=== PATIENT | female | born 1930 | race Caucasian/White ===

== ENCOUNTER → 2016-10-22 | Outpatient (CLI) | payer OTHER ==
[2016-10-22 12:38] LABS: BASOPHILS # (AUTO) 0.02 10*3/UL; BASOPHILS % (AUTO) 0.2 % (0-1); EOSINOPHILS % (AUTO) 0.9 % (0-8); HEMATOCRIT 39.3 % (37.0-47.0); HEMOGLOBIN 11.8 g/dL (12.0-16.0); IMM GRAN % (AUTO) 0.2 % (0-5); IMM GRAN# (AUTO) 0.02 10*3/UL; LYMPHOCYTES # (AUTO) 0.49 10*3/uL; LYMPHOCYTES % (AUTO) 5.7 % (10-50); MEAN CORPUSCULAR HEMOGLOBIN 29.6 PG (27-31); MEAN PLATELET VOLUME 10.5 FL (7.4-12.2); MONOCYTES # (AUTO) 0.43 10*3/UL (0.3-0.8); NEUTROPHILS # (AUTO) 7.51 10*3/UL; RDW COEFFICIENT OF VARIATION 14.3 % (11.5-14.5); RED BLOOD COUNT 3.99 10^6/uL (4.20-5.40); WHITE BLOOD COUNT 8.55 10^3/uL (4.8-10.8)
[2016-10-22 12:40] LABS: PLATELET MORPHOLOGY COMMENT NORMAL MORPHOLOGY (NORM)
[2016-10-22 13:05] LABS: CALCIUM 9.5 mg/dL (8.7-10.7); POTASSIUM 4.3 meq/L (3.8-5.2)
== END ==
LOC: MOB LAB 11:15
DX: J44.9 Chronic obstructive pulmonary disease, unspecified (principal); I10 Essential (primary) hypertension; I48.91 Unspecified atrial fibrillation; F03.90 Unspecified dementia, unspecified severity, without behavioral disturbance, psychotic disturbance, mood disturbance, and anxiety
CPT/HCPCS: 36415; 80048; 85025; 99213; G0463

== ENCOUNTER 2017-01-02 13:00 | Observation (INO) | payer OTHER ==
[2017-01-02] MEDS ORDERED: NITROGLYCERIN 0.4 MG SL TAB (BOTTLE OF 3) SL ONE (13:20)
[2017-01-02] MEDS ORDERED: ONDANSETRON 4 MG/2 ML VIAL IVP ONE (13:20)
--- NOTE | 2017-01-02 13:25 | PDOC ---
Chest Pain HPI - General Chief Complaint: Chest Pain Stated Complaint: chest pain Date Seen by Provider: 01/02/17 Time Seen by Provider: 13:21 Source: Patient Exam Limitations: POSITIVE: No limitations Treatment Prior to Arrival: REPORTS: None Nurse's Notes Reviewed & Considered: Yes EMS Report Reviewed & Considered: Verbal - History of Present Illness Initial Comments: This very pleasant 89-year-old female comes in today with complaints of left- sided chest pain. SHe describes her pain as sharp, nonradiating, that woke her up at 0700 today. Since then her pain has gotten worse her son brought her in for evaluation. She denies any fever chills sweats, headache, sore throat, shortness of breath, nausea vomiting or diarrhea, hematuria or dysuria. Body Location Affected: REPORTS: Chest Timing: REPORTS: Abrupt Duration: 4-6 hours Severity: Moderate Context: REPORTS: Sleep Quality: REPORTS: "Pain" Radiation: REPORTS: None Modifying Factors: improves with: None Reported Similar Symptoms Previously: No Recently seen/treated/hospitalized: No Any Prior Injuries Related to Current Complaint?: No - Patient Home Medications Home Medications: Home Medications Ascorbic Acid [Vitamin C] 500 mg PO DAILY 04/19/14 Donepezil HCl 10 mg PO DAILY 04/19/14 Fluticasone/Salmeterol [Advair 500-50 Diskus] 1 puff INH BID 04/19/14 Calcium Carbonate/Vitamin D3 [Calcium 600-Vit D3 200 Tablet] 1 tab PO DAILY 04/21 Ferrous Sulfate 1 tab PO DAILY 12/12/15 Multivitamin [Daily Multivitamin] 1 tab PO DAILY 12/12/15 Tiotropium Inhalation Cap [Spiriva Inhalation Cap] 18 mcg INH RTDAILY PRN 04/21 Digoxin [Lanoxin] 125 mcg PO DAILY #30 tab 12/13/15 Polyeth Glycol 3350 Packet [Miralax Packet] 17 gm PO DAILY #30 powd.pack Cholecalciferol (Vitamin D3) [Vitamin D3] 1 tab PO QD #30 tab 01/16/16 Aspirin [Aspir 81] 1 tab PO DAILY tab 03/12/16 Furosemide 2 tab PO QD #60 tab 06/07/16 Metoprolol Tartrate 1 tab PO BID #60 tab 06/07/16 Potassium Chloride 0.5 tab PO QD #15 tab 09/07/16 Pantoprazole Sodium [Protonix] 1 tab PO QD #30 tab 09/12/16 predniSONE Tab [Deltasone Tab] 1 tab PO QD #30 tab 12/11/16 - Patient Allergies Allergies/Adverse Reactions: Allergies Allergy/AdvReac Type Severity Reaction Status Date / Time Penicillins Allergy Severe Anaphylaxis Verified 01/02/17 13:24 Past Medical History - heen HEENT History: Denies History Additional HEENT History: READING GLASSES Cardiovascular History: CHF, Arrhythmia Additional Cardiovasular History: Chronic A-Fib Respiratory History: COPD, Pneumonia, Home Oxygen Use Additional Respiratory History: Pt with dx of 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 Never smoked. O2 dependent--2 L continuously. Hx of recurrent pneumonia. Gastrointestinal History: Gallbladder Disease, Small Bowel Obstruction, Other ( please comment) Additional Gastrointestinal History: BOWEL RESECTION X2 Genitourinary History: Denies History Endocrine History: Denies History Musculoskeletal History: Osteoporosis Prosthesis or Implant: Yes (RIGHT TOTAL KNEE) Additional Musculoskeletal History: STRESS FX TO UPPER BAQCK Neurological History: Alzheimer's, Migraines Blood Disorders: Anemia Psychiatric History: Denies History History of Sexually Transmitted Diseases: No Cancer History: Denies History History of MDRO: No History of Other Communicable Diseases: No Alcohol Use: Occasionally Substance Use Type: None Previous Surgical History: Yes Type / Date of Surgery: Open cholecystectomyRight hemicolectomy with primary anastomosis due to massive cecal dilatation, small bowel resection with primary anastomosis, reduction of internal hernia 04/30/2013 Dr. Ko Perez. Anesthesia Reactions: No Malignant Hyperthermia: No Significant Family History: No pertinent family hx ROS - Limitations ROS Limitations: No Limitations Constitution: REPORTS: Denies Symptoms Cardiovascular: REPORTS: Chest Pain Respiratory: REPORTS: Denies Resp Symptoms Neurological: REPORTS: Denies Neuro Symptoms Gastrointestinal: REPORTS: Denies GI Symptoms Endocrine: REPORTS: Denies Symptoms Musculoskeletal: REPORTS: Denies MS Symptoms Genitourinary: REPORTS: Denies Symptoms Eyes: REPORTS: Denies Symptoms ENT: REPORTS: Denies Symptoms Skin: REPORTS: Denies Skin Symptoms Lympathic: REPORTS: Denies Lympathic Symptoms Immunologic: POSITIVE: Denies Symptoms Psychiatric: POSITIVE: Denies Psych Symptoms Chest Pain PE - General Appearance General Appearance: REPORTS: Alert, Cooperative, No Acute Distress, No Evidence of Trauma - HEENT HEENT: POSITIVE: Head Inspection Nml, Eyes Inspection Nml, Ears Inspection Nml, Nose Inspection Nml, PERRL, EOMI - Neck Neck: REPORTS: Normal Inspection - Respiratory Respiratory: REPORTS: No Respiratory Distress, Breath Sounds Normal, Chest Non- Tender - Cardiovascular Cardiovascular: REPORTS: Regular Rate and Rhythm, Heart Sounds Normal - Abdomen Abdomen: Soft: (All Quadrants), Normal Bowel Sounds: (All Quadrants), Denies Tenderness: (All Quadrants) - Skin Skin: REPORTS: Intact, Normal For Race, Warm, Dry, No Rash - Extremities Extremity: Non-Tender: (All Extremities), Normal ROM: (All Extremities), Normal Inspection: (All Extremities) - Neurological / Psychological Neurological: POSITIVE: Affect Apporpriate, Disoriented To Time Chest Pain Progress - Results Reviewed by me Xrays/CTs/US Reviewed by me: Yes Discussed with Radiologist: No Lab Results Reviewed: Yes Lab Results:: Laboratory Results 01/02/17 Range/Units 13:39 WBC 7.93 (4.8-10.8) 10^3/uL RBC 3.86 L (4.20-5.40) 10^6/uL Hgb 11.4 L (12.0-16.0) g/dL Hct 38.0 (37.0-47.0) % MCV 98.4 (81-99) FL MCH 29.5 (27-31) PG MCHC 30.0 L (33-37) g/dL RDW Std Deviation 50.6 H (39-50) fL RDW Coeff of Pepito 14.3 (11.5-14.5) % Plt Count 276 (140-350) 10*3/uL MPV 10.0 (7.4-12.2) FL Immature Gran % (Auto) 0.3 (0-5) % Neut % (Auto) 78.7 (50-80) % Lymph % (Auto) 9.5 L (10-50) % Ellsworth % (Auto) 9.1 (5-15) % Eos % (Auto) 2.1 (0-8) % Baso % (Auto) 0.3 (0-1) % Immature Gran # (Auto) 0.02 10*3/UL Neut # (Auto) 6.25 10*3/UL Lymph # (Auto) 0.75 10*3/uL Ellsworth # (Auto) 0.72 (0.3-0.8) 10*3/UL Eos # (Auto) 0.17 10*3/UL Baso # (Auto) 0.02 10*3/UL WBC Morphology Comment Normal morphology (NORM) Plt Morphology Comment Normal morphology (NORM) RBC Morph Comment Normal morphology (NORM) Sodium 136 (135-145) meq/L Potassium 3.4 L (3.8-5.2) meq/L Chloride 88 L (98-112) meq/L Carbon Dioxide 40 H (23-33) meq/L Anion Gap 8 (5-20) BUN 16 (7-22) mg/dL Creatinine 1.0 (0.50-1.20) mg/dL Estimated GFR (>60 ml/min/1.73m(2)) BUN/Creatinine Ratio 16.00 (6-20) Glucose 91 (78-110) mg/dL Calculated Osmolality 282.0 (267-292) mOsm/kg Calcium 9.3 (8.7-10.7) mg/dL Magnesium 1.6 (1.6-2.4) mg/dL Total Bilirubin 0.4 (0.3-1.2) mg/dL AST 19 (8-39) IU/L ALT 23 (9-52) IU/L Alkaline Phosphatase 63 (38-126) IU/L Troponin I 0.025 (< 0.040) ng/mL Total Protein 5.7 L (6.1-8.0) g/dL Albumin 3.4 L (3.5-4.8) g/dL Globulin 2.3 L (2.50-4.10) g/dL Albumin/Globulin Ratio 1.40 (1.3-2.0) mg/g EKG Interpretation:: POSITIVE: Abnormal EKG, Other (afib) - Patient's Progress Pain Medication Addressed: POSITIVE: No Status: POSITIVE: Improved MDM / ED Course: The patient was evaluated, IV started, blood drawn and sent to the lab for studies, chest x-ray was obtained as well as EKG. Review of her EKG by me shows atrial fibrillation that is rate controlled. Chest x-ray as reviewed by me shows no acute cardiopulmonary decompensation. Patient's chest pain was improved with sublingual nitroglycerin. Laboratory findings: CBC is unremarkable. Comprehensive metabolic panel is unremarkable, troponin, magnesium, are normal. Assessment: Chest pain relieved with nitroglycerin, atrial fibrillation. Plan: Admission for rule out myocardial infarction. Quality Measure Initiative: CP/AMI: POSITIVE: EKG, ASA Quality Measure Initiative: CAP: POSITIVE: CXR or CT - Consult Counseled: POSITIVE: Patient, Family, RE: Lab Results, RE: Radiology Results, RE : DX, RE: Need for F/U Patient Care Time - Estimated PCT Patient Care Time (In Minutes): 30 Vital Signs - Recent Vital Signs Vital Signs: Vital Signs (Last 8 hours) Temp Pulse Pulse Resp BP Pulse Ox 01/02/17 13:02 97.8 F 95 95 20 150/105 97 - VS Reviewed Vital Signs Reviewed: Yes Discharge Clinical Impression: Chest discomfort, Chest pain Discharge Disposition: Admit to Inpatient Condition: Stable Patient Instructions Given at Discharge: Chest Pain (ED) Follow Up With: KARL NICOLE [Primary Care Provider] - Date Decision to Admit to Inpatient: 01/02/17 Time Decision to Admit to Inpatient: 14:07
[2017-01-02] MEDS ORDERED: NORMAL SALINE 10 ML SYRINGE FLUSH IVP PRN ×2 (13:35→14:53)
[2017-01-02 13:43] LABS: BASOPHILS # (AUTO) 0.02 10*3/UL; BASOPHILS % (AUTO) 0.3 % (0-1); EOSINOPHILS # (AUTO) 0.17 10*3/UL; EOSINOPHILS % (AUTO) 2.1 % (0-8); HEMOGLOBIN 11.4 g/dL (12.0-16.0); LYMPHOCYTES # (AUTO) 0.75 10*3/uL; MEAN CORPUSCULAR HEMOGLOBIN 29.5 PG (27-31); MEAN CORPUSCULAR VOLUME 98.4 FL (81-99); MONOCYTES # (AUTO) 0.72 10*3/UL (0.3-0.8); MONOCYTES % (AUTO) 9.1 % (5-15); NEUTROPHILS # (AUTO) 6.25 10*3/UL; NEUTROPHILS % (AUTO) 78.7 % (50-80); RED BLOOD COUNT 3.86 10^6/uL (4.20-5.40)
[2017-01-02 13:47] LABS: PLATELET MORPHOLOGY COMMENT NORMAL MORPHOLOGY (NORM); RBC MORPHOLOGY COMMENT NORMAL MORPHOLOGY (NORM); WBC MORPHOLOGY COMMENT NORMAL MORPHOLOGY (NORM)
[2017-01-02] MEDS ORDERED: Sodium Chloride 0.9% 1,000 ML PRIMARY IV ONE (13:53)
[2017-01-02 13:59] LABS: CALCIUM 9.3 mg/dL (8.7-10.7); MAGNESIUM 1.6 mg/dL (1.6-2.4); SERUM ALBUMIN 3.4 g/dL (3.5-4.8)
[2017-01-02] MEDS ORDERED: TIOTROPIUM BROMIDE 18 MCG CAPSULE INH PRN (14:53)
[2017-01-02] MEDS ORDERED: ONDANSETRON 4 MG/2 ML VIAL IVP PRN (14:53)
[2017-01-02] MEDS ORDERED: CALCIUM CARBONATE 500 MG (TUMS) CHEWABLE TABLET PO PRN (14:53)
[2017-01-02] MEDS ORDERED: NITROGLYCERIN 0.4 MG SL TAB (BOTTLE OF 3) SL PRN (14:53)
[2017-01-02] MEDS ORDERED: ASPIRIN 81 MG (BABY) CHEWABLE TABLET PO ONE (14:53)
[2017-01-02] MEDS ORDERED: LIDOCAINE W/ SODIUM BICARB 0.5 ML SYR SUBD PRN (14:53)
[2017-01-02] MEDS ORDERED: FUROSEMIDE 40 MG TABLET PO SCH ×2 (15:15→19:01)
--- NOTE | 2017-01-02 15:28 | PDOC ---
History and Physical - History of Present Illness Date and Time of Service: 01/02/2017, 1525 Chief Complaint: Chest pain History of Present Illness: This very pleasant but demented 86-year-old female who has dementia, reportedly a history of coronary artery disease, COPD, history of a hip fracture in 2016, amongst other medical issues, who presents with chest pain today of acute onset. Not associated with activities. At first she refused hospitalization, but then continued to complain of pain. She did respond to nitroglycerin, and to me she states that it hurts worse with a deep breath. No nausea or vomiting reported. Did not have a cough or fever according to her sons. The history has to be obtained from the patient's sons as the patient has dementia and her history is not entirely reliable. There appeared to be no exacerbating factors. In the emergency room, chest x-ray appeared negative. Troponin was negative. An EKG showed atrial fibrillation. She has a rate controlled atrial fibrillation. No other exacerbating factors were able to be identified. Past Medical History Medical History: 1. Alzheimer's dementia. 2. COPD on 3 L oxygen at home. 3. Coronary artery disease with history of a myocardial infarction by history. 4. Hypertension. 5. GERD. 6. Atrial fibrillation. 7. History of hip fracture status post ORIF in November 2015. Surgical History: 1. Hip fracture repair (both hips have had fracture and repair). 2. Small bowel obstruction. 3. Cholecystectomy. 4. Appendectomy. 5. Hysterectomy Pertinent Family History: Patient's father, according to her son, of heart problems. Patient's mother of "old age" Past Social History: Patient does not smoke, occasionally drinks alcohol per her brother. She had 6 children. Her son and a daughter are her parkinson of associate attorney. One of her daughters has dementia. Tobacco Use: Never Smoker Substance Use Type: None Alcohol Use: Occasionally Medication / Allergies Home Medications: Home Medications Medication Instructions Recorded Confirmed Type Ascorbic Acid [Vitamin C] 500 mg PO DAILY 04/19/14 01/02/17 History Donepezil HCl 10 mg PO DAILY 04/19/14 01/02/17 History Fluticasone/Salmeterol [Advair 1 puff INH DAILY 04/19/14 01/02/17 History 500-50 Diskus] Calcium Carbonate/Vitamin D3 1 tab PO DAILY 12/12/15 01/02/17 History [Calcium 600-Vit D3 200 Tablet] Ferrous Sulfate 1 tab PO DAILY 12/12/15 01/02/17 History Multivitamin [Daily Multivitamin] 1 tab PO DAILY 12/12/15 01/02/17 History Tiotropium Inhalation Cap 18 mcg INH RTDAILY 12/12/15 01/02/17 History [Spiriva Inhalation Cap] Digoxin [Lanoxin] 125 mcg PO DAILY #30 tab 12/13/15 01/02/17 Rx Cholecalciferol (Vitamin D3) 1 tab PO QD #30 tab 01/16/16 01/02/17 Clinic [Vitamin D3] Aspirin [Aspir 81] 1 tab PO DAILY tab 03/12/16 01/02/17 History Furosemide 2 tab PO QD #60 tab 06/07/16 01/02/17 Clinic Metoprolol Tartrate 1 tab PO BID #60 tab 06/07/16 01/02/17 Clinic Potassium Chloride 0.5 tab PO QD #15 tab 09/07/16 01/02/17 Clinic Pantoprazole Sodium [Protonix] 1 tab PO QD #30 tab 09/12/16 01/02/17 Clinic predniSONE Tab [Deltasone Tab] 1 tab PO QD #30 tab 12/11/16 01/02/17 Clinic Docusate Sodium 100 mg PO DAILY 01/02/17 01/02/17 History Allergies/Adverse Reactions: Allergies Allergy/AdvReac Type Severity Reaction Status Date / Time Penicillins Allergy Severe Anaphylaxis Verified 01/02/17 13:24 Review of Systems - Review of Systems ROS Unobtainable: Due to Mental Status (Due to the dementia of the patient, and accurate review systems was very difficult to obtain. Noted things are below.) - Respiratory Respiratory: REPORTS: Pleuritic Pain - Cardiovascular Cardiovascular: REPORTS: Chest Pain - Gastrointestinal Gastrointestinal / Abdominal: REPORTS: Negative System Review - Genitourinary Genitourinary: REPORTS: Negative System Review Exam - Vitals Vital Signs: Vital Signs Temperature 97.8 F Temperature Source Temporal Artery Scan Pulse Rate [Pulse Oximeter 95 Right] Pulse Rate 99 Respiratory Rate 28 Blood Pressure [Right Arm] 137/70 Blood Pressure 104/78 Pulse Ox 95 Oxygen Flow Rate 3 Oxygen Delivery Method Nasal Cannula Height 5 ft 7 in Weight 146 lb 3.2 oz - General General Appearance: POSITIVE: No Acute Distress, Cooperative - Head Head Exam: POSITIVE: Normal Inspection, Normocephalic, Atraumatic - Eye Eye Exam: POSITIVE: No Scleral Icterus - ENT ENT Exam: POSITIVE: Mucous Membranes Moist - Neck Neck Exam: POSITIVE: Normal Inspection, No Tenderness, No Thyromegaly - Respiratory Respiratory Exam: POSITIVE: Breathing Non Labored, Decreased Breath Sounds - Cardiovascular Cardiovascular Exam: POSITIVE: No Murmur, No Clicks, No Gallops, No Rubs, Irregular Rhythm, No JVD Additional Cardiovascular Details: Chest pain not reproducible with palpation. - GI/Abdominal GI/Abdominal Exam: POSITIVE: Normal Bowel Sounds, Non Tender, Non Distended, Soft - Rectal Rectal Exam: POSITIVE: Deferred - External Exam: POSITIVE: Deferred Exam: POSITIVE: Deferred - Extremities Extremities Exam: POSITIVE: No Clubbing Present, No Edema Present, No Cyanosis Present - Neurological Neurological Exam: POSITIVE: Alert, No Facial Droop, Speech Intact / Clear, Moves All Extremities Equally - Psychiatric Psychiatric Exam: POSITIVE: Normal Affect, Normal Mood - Integumentary Integumentary Exam: POSITIVE: Normal Color, Warm, Dry, Intact Additional Integumentary Exam Details: Scattered bruises on lower extremities. Results - Labs CBC and BMP: 01/02/17 13:39 01/02/17 13:39 Labs - Last 24 Hours: Laboratory Results 01/02/17 Range/Units 13:39 WBC 7.93 (4.8-10.8) 10^3/uL RBC 3.86 L (4.20-5.40) 10^6/uL Hgb 11.4 L (12.0-16.0) g/dL Hct 38.0 (37.0-47.0) % MCV 98.4 (81-99) FL MCH 29.5 (27-31) PG MCHC 30.0 L (33-37) g/dL RDW Std Deviation 50.6 H (39-50) fL RDW Coeff of Pepito 14.3 (11.5-14.5) % Plt Count 276 (140-350) 10*3/uL MPV 10.0 (7.4-12.2) FL Immature Gran % (Auto) 0.3 (0-5) % Neut % (Auto) 78.7 (50-80) % Lymph % (Auto) 9.5 L (10-50) % Nicholas % (Auto) 9.1 (5-15) % Eos % (Auto) 2.1 (0-8) % Baso % (Auto) 0.3 (0-1) % Immature Gran # (Auto) 0.02 10*3/UL Neut # (Auto) 6.25 10*3/UL Lymph # (Auto) 0.75 10*3/uL Nicholas # (Auto) 0.72 (0.3-0.8) 10*3/UL Eos # (Auto) 0.17 10*3/UL Baso # (Auto) 0.02 10*3/UL WBC Morphology Comment Normal morphology (NORM) Plt Morphology Comment Normal morphology (NORM) RBC Morph Comment Normal morphology (NORM) Sodium 136 (135-145) meq/L Potassium 3.4 L (3.8-5.2) meq/L Chloride 88 L (98-112) meq/L Carbon Dioxide 40 H (23-33) meq/L Anion Gap 8 (5-20) BUN 16 (7-22) mg/dL Creatinine 1.0 (0.50-1.20) mg/dL Estimated GFR (>60 ml/min/1.73m(2)) BUN/Creatinine Ratio 16.00 (6-20) Glucose 91 (78-110) mg/dL Calculated Osmolality 282.0 (267-292) mOsm/kg Calcium 9.3 (8.7-10.7) mg/dL Magnesium 1.6 (1.6-2.4) mg/dL Total Bilirubin 0.4 (0.3-1.2) mg/dL AST 19 (8-39) IU/L ALT 23 (9-52) IU/L Alkaline Phosphatase 63 (38-126) IU/L Troponin I 0.025 (< 0.040) ng/mL Total Protein 5.7 L (6.1-8.0) g/dL Albumin 3.4 L (3.5-4.8) g/dL Globulin 2.3 L (2.50-4.10) g/dL Albumin/Globulin Ratio 1.40 (1.3-2.0) mg/g AFib Stroke Risk Screening - AFib Stroke Risk (CHADS-VASc) Atrial Fibrillation Ischemic Stroke Risk Factors: Female, Age 75 years or older CHADS-VASc Score (A-Fib Stroke Risk Score): 3 CHADS-VASc Risk: High Risk Assessment and Plan - Patient Problems (1) Chest pain Current Visit: Yes Status: Acute (2) Afib Current Visit: No Status: Acute Qualifiers: Atrial fibrillation type: chronic Qualifier Code(s): (I48.2) Chronic atrial fibrillation (3) Anemia Current Visit: Yes Status: Chronic Qualifiers: Anemia type: iron deficiency Iron deficiency anemia type: unspecified iron deficiency Qualified Description: Iron deficiency anemia, unspecified iron deficiency anemia type Qualifier Code(s): (D50.9) Iron deficiency anemia, unspecified (4) Chronic obstructive lung disease Current Visit: Yes Status: Chronic (5) Alzheimer's dementia Current Visit: No Status: Acute Qualifiers: Alzheimer's disease onset: unspecified onset Dementia behavioral disturbance: without behavioral disturbance Qualifier Code(s): (G30.9) Alzheimer's disease, unspecified, (F02.80) Dementia in other diseases classified elsewhere without behavioral disturbance - Assessment / Plan Additional Assessment/Plan Details: Admit patient for observation. Check troponins and start stress test, chemical stress test. I do not think this patient would be a great candidate for stents and/or bypass, but risk stratification may make us consider making changes to her medical management. There may be some value in knowing that with the stress test. Replace electrolytes with low potassium. DO NOT RESUSCITATE status. Discussed the above plan with the patient's sons and they were in agreement. Given the pleuritic nature of chest pain, I will go ahead and get a CTA to look at possibility of pulmonary embolism.
--- NOTE | 2017-01-02 17:02 | DI ---
CT CTA CHEST NONCORONARY W/WO,01/02/2017 3:07 PM: Clinical History: Chest pain and recent hip fracture. Previous Exam: September 10, 2014 Findings: Multiple helically acquired CT images are obtained through the chest following a CT chest angiogram p rotocol, and demonstrate mild stable cardiomegaly. The pulmonary arteries demonstrate no evidence of filling defect or truncation to suggest pulmonary embolism. The aorta is unremarkable. There is no infiltrate nor effusion. Skeletal structures are unremarkable. The thyroid is also unremarkable. Impression: No evidence of pulmonary embolism.
--- NOTE | 2017-01-02 17:02 | DI ---
XR CXR 1VW,01/02/2017 1:20 PM: Clinical History: Chest pain Previous Exam: November 27, 2015 Findings: 2 AP portable views of the chest are obtained, and demonstrate clear lungs. There is stable cardiomeg que. A few peripheral vascular calcifications are seen. Impression: Mild cardiomegaly otherwise unremarkable.
[2017-01-02] MEDS: PANTOPRAZOLE 40 MG TABLET PO SCH (17:42)
[2017-01-02] MEDS ORDERED: POTASSIUM CHLORIDE 20 MEQ TAB PO ONE (19:00)
[2017-01-02] MEDS ORDERED: ACETAMINOPHEN 325 MG TABLET PO PRN (19:10)
[2017-01-02] MEDS: FLUTICASONE/SALMETEROL 500/50 UD INHALER INH SCH (20:38)
[2017-01-02] MEDS: Metoprolol TARTRATE Tab 25 MG TAB PO SCH (20:47)
[2017-01-02] MEDS ORDERED: DONEPEZIL 5 MG TABLET PO SCH (21:00)
[2017-01-03 05:20] LABS: CHOL/HDL RATIO 2.17 RATIO (0-4.0); LDL CHOLESTEROL,CALCULATED 67.2 mg/dL
[2017-01-03] MEDS: FLUTICASONE/SALMETEROL 500/50 UD INHALER INH SCH (07:15)
[2017-01-03] MEDS ORDERED: Multivitamin Tab 1 TAB PO SCH (09:00)
[2017-01-03] MEDS ORDERED: predniSONE Tab 10 MG TAB PO SCH (09:00)
[2017-01-03] MEDS ORDERED: ASPIRIN EC 81 MG TABLET PO SCH (09:00)
[2017-01-03] MEDS ORDERED: Potassium Chloride Tab 10 MEQ TAB PO SCH (09:00)
[2017-01-03] MEDS ORDERED: POLYETHYLENE GLYCOL 3350 17 GM POWDER PO SCH (09:00)
[2017-01-03] MEDS ORDERED: ASCORBIC ACID 500 MG TABLET PO SCH (09:00)
[2017-01-03] MEDS ORDERED: DOCUSATE 100 MG CAPSULE PO SCH (09:00)
[2017-01-03] MEDS ORDERED: ENOXAPARIN SODIUM 40 MG/0.4 ML SYRINGE SUBCUT SCH (09:00)
[2017-01-03] MEDS ORDERED: DIGOXIN 125 MCG TABLET PO SCH (09:00)
[2017-01-03] MEDS ORDERED: CHOLECALCIFEROL 1000 IU TABLET PO SCH (09:00)
[2017-01-03] MEDS ORDERED: METOPROLOL TARTRATE 5 MG/5 ML VIAL IVP ONE (09:23)
[2017-01-03] MEDS: Metoprolol TARTRATE Tab 25 MG TAB PO SCH (09:34)
[2017-01-03] MEDS: PANTOPRAZOLE 40 MG TABLET PO SCH (09:35)
--- NOTE | 2017-01-03 10:24 | STRESSTEST ---
[facility] Interpretive Statements This is an 86 YO female with chest pain, sub sternal and left sided, atypical, complicated by dementia. Risk factors include hypertention and age. CT scan negative for PE. Reshma scan stress test ordered for risk stratification and medication management options. Resting images done yesterday. Today, resting EKG shows A-fib with normal ventricular response. During test, some borderline ST depression in inferior leads, HR increased to max of 141. No chest pain or SOB. had some abdominal discomfort. Plan: stress images later today and then review stress test with radiology. [email or web address]
--- NOTE | 2017-01-03 11:51 | EKG ---
[address] [place] [address] Measurements Intervals Weld Rate: 101 P: CA: 0 QRS: -60 QRSD: 89 T: 93 QT: 345 QTc: 403 Interpretive Statements ATRIAL FIBRILLATION WITH RAPID VENTRICULAR RESPONSE LEFT AXIS DEVIATION PPOSSIBLE ANTEROSEPTAL MYOCARDIAL INFARCTION OF INDETERMINATE AGE. FINDINGS MAY BE DUE TO LEAD POSITIONING Compared to ECG 11/29/2015 18:23:37 Myocardial infarct finding now present T-wave abnormality no longer present Electronically Signed On 01-03-17 15:11:42 MDT by Jose Carson [email or web address]
[2017-01-03 13:42] VITALS: RESP 20; TEMP 98.2
--- NOTE | 2017-01-03 14:13 | DI ---
2 DAY LEXISCAN STRESS & REST MYOCARDIAL PERFUSION SCANS, 01/02/2017 2:53 PM : Clinical History: Chest pain Previous Exam: None at this facility. The patient was stressed by Dr. Tony Sandoval The standard Lexiscan protocol was used. Please see the Doctor's report. At the designated time, 34.9 mCi of 99Tc-sestimibi was injected IV. Stress gated tomograms were acquired within one hour of the i njection. For the resting scans, 35.8 mCi was injected IV and resting gated tomograms were acquired in similar fashion. Stress scans were performed on January 03, 2017; the resting scans were performed on January 02, 2017. Quantitative and qualitative analyses were performed. Quantitative analysis was performed with the [place] [facility] [id number] protocols. Very low dose limited CT scans of the chest are o btained through the level of the heart for attenuation correction of the gated stress and rest cardia c SPECT data. Non-attenuated and attenuated scans were processed for review, and the attenuated scans were used for final interpretation of this study. Review of the raw data images and quality director files indicate that these series of examinations ar e of good quality. There are 23% rejected beats. Stress and rest left ventricular chamber sizes are normal. Stress and rest LVEF are 63 % and 62 %, r espectively. There is a small moderate intensity defect involving the anterior apex with moderate reversibility. There is also a large focus of mild reversibility involving the inferior lateral wall predominately t hrough the mid slices. Transient ischemic dilatation ratio is 1.3, with a normal range up to 1.22 for patients stre ssed with the Wes protocol and up to 1.33 for patients stressed with the Lexiscan protocol. The very low dose CT scans through the level of the heart demonstrate multiple peripheral vascular ca lcifications and multiple coronary artery calcifications. There is mild cardiomegaly. Diffuse degenerative changes of the thoracic spine are noted. There is no adenopathy or evidence of lung nodules. Readin. Small focus of moderate intensity reversibility involving the anterior apex. 2. Large area of mild intensity reversible involving the inferior lateral wall. 3. Mild hypokinesis with ejection fractions at the low end of normal.
[2017-01-03] MEDS ORDERED: ISOSORBIDE MONONITRATE 30 MG SR 24H TABLET PO ONE (14:51)
--- NOTE | 2017-01-03 16:20 | DCSUMMARY ---
Hospitalization Summary Admit Date: 01/02/17 Discharge Date: 01/03/17 Primary Diagnosis:: coronary artery disease, probably severe Secondary Diagnosis:: Chest pains that I think are stable angina Hospital Course: This is a very pleasant but demented 86-year-old female with multiple medical issues who came in with complaints of left-sided chest pain with pleuritic component. She was admitted for observation, and a pulmonary emboli CT protocol study was done and it was negative for pulmonary embolism. She had troponins that were negative although the last one was minimally elevated. Her chest pains resolved. A stress test was done and she had evidence of several reversibility is consistent with coronary artery disease in multiple vessels. I discussed the situation thoroughly with the patient's son, and several of her other sons. I do not think the patient is a good candidate for stents or bypass surgery based on her COPD, dementia, and significant chance of worsening quality of life with these procedures. Her son, her primary caregiver, is in agreement, 100%, and he says that the patient does not want any procedures of any kind. When I talked to the patient personally, she stated that if she had any procedures, including stents, she would "thump me". For now, further chest pains and I think could be stable angina, I think it may be worthwhile to trial Imdur daily, and see how she does with this. The patient's agreeable and the family is agreeable to this. Today, patient states that her chest pains are resolved. There is minimal pleuritic component. No nausea or vomiting or abdominal pain. Assessment and Plan: 1. As per discharge assessments noted 2. Disposition: 3. Condition on discharge, stable and improved. 4. Diet: regular diet 5. Activities: resume normal activities 6. Follow-Up: 1. Dr. Caputo on 01/16/2017 2. 7. Medications at the Time of Discharge: Home Medications Medication Instructions Recorded Confirmed Type Ascorbic Acid [Vitamin C] 500 mg PO DAILY 04/19/14 01/02/17 History Donepezil HCl 10 mg PO DAILY 04/19/14 01/02/17 History Fluticasone/Salmeterol [Advair 1 puff INH DAILY 04/19/14 01/02/17 History 500-50 Diskus] Calcium Carbonate/Vitamin D3 1 tab PO DAILY 12/12/15 01/02/17 History [Calcium 600-Vit D3 200 Tablet] Ferrous Sulfate 1 tab PO DAILY 12/12/15 01/02/17 History Multivitamin [Daily Multivitamin] 1 tab PO DAILY 12/12/15 01/02/17 History Tiotropium Inhalation Cap 18 mcg INH RTDAILY 12/12/15 01/02/17 History [Spiriva Inhalation Cap] Digoxin [Lanoxin] 125 mcg PO DAILY #30 tab 12/13/15 01/02/17 Rx Cholecalciferol (Vitamin D3) 1 tab PO QD #30 tab 01/16/16 01/02/17 Clinic [Vitamin D3] Aspirin [Aspir 81] 1 tab PO DAILY tab 03/12/16 01/02/17 History Furosemide 2 tab PO QD #60 tab 06/07/16 01/02/17 Clinic Metoprolol Tartrate 1 tab PO BID #60 tab 06/07/16 01/02/17 Clinic Potassium Chloride 0.5 tab PO QD #15 tab 09/07/16 01/02/17 Clinic Pantoprazole Sodium [Protonix] 1 tab PO QD #30 tab 09/12/16 01/02/17 Clinic predniSONE Tab [Deltasone Tab] 1 tab PO QD #30 tab 12/11/16 01/02/17 Clinic Docusate Sodium 100 mg PO DAILY 01/02/17 01/02/17 History Isosorbide Mononitrate ER [Imdur] 30 mg PO DAILY #30 tab.sr.24h 01/03/17 Rx 8. Time, care, counseling and coordination of care for this discharge is less than 30 minutes. Exam - Vitals Vital Signs: Vital Signs Temperature 98.2 F Temperature Source Temporal Artery Scan Pulse Rate [Apical] 100 Pulse Rate [Pulse Oximeter 81 Right] Pulse Rate 92 Respiratory Rate 20 Blood Pressure [Right Arm] 104/50 Blood Pressure 104/78 Pulse Ox 95 Oxygen Flow Rate 3 Oxygen Delivery Method Nasal Cannula Height 5 ft 7 in Weight 151 lb 3.2 oz - General General Appearance: POSITIVE: No Acute Distress, Cooperative - Head Head Exam: POSITIVE: Atraumatic - Eye Eye Exam: POSITIVE: No Scleral Icterus - Respiratory Respiratory Exam: POSITIVE: Clear to Auscultation - Bilaterally, Breathing Non Labored - Cardiovascular Cardiovascular Exam: POSITIVE: RRR, No Murmur, No Clicks, No Gallops, No Rubs, No JVD - GI/Abdominal GI/Abdominal Exam: POSITIVE: Normal Bowel Sounds, Non Tender, Non Distended, Soft - Extremities Extremities Exam: POSITIVE: No Clubbing Present, No Edema Present, No Cyanosis Present Data Perinent Studies: Laboratory Results 01/02/17 01/02/17 01/02/17 Range/Units 13:39 17:07 17:10 WBC 7.93 (4.8-10.8) 10^3/uL RBC 3.86 L (4.20-5.40) 10^6/uL Hgb 11.4 L (12.0-16.0) g/dL Hct 38.0 (37.0-47.0) % MCV 98.4 (81-99) FL MCH 29.5 (27-31) PG MCHC 30.0 L (33-37) g/dL RDW Std Deviation 50.6 H (39-50) fL RDW Coeff of Pepito 14.3 (11.5-14.5) % Plt Count 276 (140-350) 10*3/uL MPV 10.0 (7.4-12.2) FL Immature Gran % (Auto) 0.3 (0-5) % Neut % (Auto) 78.7 (50-80) % Lymph % (Auto) 9.5 L (10-50) % Burnet % (Auto) 9.1 (5-15) % Eos % (Auto) 2.1 (0-8) % Baso % (Auto) 0.3 (0-1) % Immature Gran # (Auto) 0.02 10*3/UL Neut # (Auto) 6.25 10*3/UL Lymph # (Auto) 0.75 10*3/uL Burnet # (Auto) 0.72 (0.3-0.8) 10*3/UL Eos # (Auto) 0.17 10*3/UL Baso # (Auto) 0.02 10*3/UL WBC Morphology Comment Normal morphology (NORM) Plt Morphology Comment Normal morphology (NORM) RBC Morph Comment Normal morphology (NORM) Sodium 136 (135-145) meq/L Potassium 3.4 L (3.8-5.2) meq/L Chloride 88 L (98-112) meq/L Carbon Dioxide 40 H (23-33) meq/L Anion Gap 8 (5-20) BUN 16 (7-22) mg/dL Creatinine 1.0 (0.50-1.20) mg/dL Estimated GFR (>60 ml/min/1.73m(2)) BUN/Creatinine Ratio 16.00 (6-20) Glucose 91 (78-110) mg/dL Calculated Osmolality 282.0 (267-292) mOsm/kg Calcium 9.3 (8.7-10.7) mg/dL Magnesium 1.6 (1.6-2.4) mg/dL Total Bilirubin 0.4 (0.3-1.2) mg/dL AST 19 (8-39) IU/L ALT 23 (9-52) IU/L Alkaline Phosphatase 63 (38-126) IU/L Troponin I 0.025 0.031 (< 0.040) ng/mL NT-Pro-B Natriuret Pep 2390 H (0-450) PG/ML Total Protein 5.7 L (6.1-8.0) g/dL Albumin 3.4 L (3.5-4.8) g/dL Globulin 2.3 L (2.50-4.10) g/dL Albumin/Globulin Ratio 1.40 (1.3-2.0) mg/g Triglycerides (44-200) mg/dL Cholesterol (120-200) mg/dL LDL Cholesterol, Calc mg/dL VLDL Cholesterol (0-40) mg/dL HDL Cholesterol (40-150) mg/dL Cholesterol/HDL Ratio (0-4.0) RATIO 03/30/17 Range/Units 04:34 WBC (4.8-10.8) 10^3/uL RBC (4.20-5.40) 10^6/uL Hgb (12.0-16.0) g/dL Hct (37.0-47.0) % MCV (81-99) FL MCH (27-31) PG MCHC (33-37) g/dL RDW Std Deviation (39-50) fL RDW Coeff of Pepito (11.5-14.5) % Plt Count (140-350) 10*3/uL MPV (7.4-12.2) FL Immature Gran % (Auto) (0-5) % Neut % (Auto) (50-80) % Lymph % (Auto) (10-50) % [place]et % (Auto) (5-15) % Eos % (Auto) (0-8) % Baso % (Auto) (0-1) % Immature Gran # (Auto) 10*3/UL Neut # (Auto) 10*3/UL Lymph # (Auto) 10*3/uL [place]et # (Auto) (0.3-0.8) 10*3/UL Eos # (Auto) 10*3/UL Baso # (Auto) 10*3/UL WBC Morphology Comment (NORM) Plt Morphology Comment (NORM) RBC Morph Comment (NORM) Sodium 136 (135-145) meq/L Potassium 3.9 (3.8-5.2) meq/L Chloride 91 L (98-112) meq/L Carbon Dioxide 38 H (23-33) meq/L Anion Gap 7 (5-20) BUN 17 (7-22) mg/dL Creatinine 1.0 (0.50-1.20) mg/dL Estimated GFR (>60 ml/min/1.73m(2)) BUN/Creatinine Ratio 17.00 (6-20) Glucose 102 (78-110) mg/dL Calculated Osmolality 283.0 (267-292) mOsm/kg Calcium 9.0 (8.7-10.7) mg/dL Magnesium (1.6-2.4) mg/dL Total Bilirubin (0.3-1.2) mg/dL AST (8-39) IU/L ALT (9-52) IU/L Alkaline Phosphatase (38-126) IU/L Troponin I 0.041 H (< 0.040) ng/mL NT-Pro-B Natriuret Pep (0-450) PG/ML Total Protein (6.1-8.0) g/dL Albumin (3.5-4.8) g/dL Globulin (2.50-4.10) g/dL Albumin/Globulin Ratio (1.3-2.0) mg/g Triglycerides 69 (44-200) mg/dL Cholesterol 150 (120-200) mg/dL LDL Cholesterol, Calc 67.200 mg/dL VLDL Cholesterol 13 (0-40) mg/dL HDL Cholesterol 69 (40-150) mg/dL Cholesterol/HDL Ratio 2.17 (0-4.0) RATIO Positive stress test. Patient Problems - Patient Problem List (1) Coronary artery disease involving [place]iat[place] coronary artery Current Visit: Yes Status: Acute Qualifiers: [place] vs. transplanted heart: [place] heart Associated angina: with stable angina Qualified Description: Coronary artery disease of [place] artery of [place] heart with stable angina pectoris Qualifier Code(s): ( I25.118) Atherosclerotic heart disease of [place] coronary artery with other forms of angina pectoris (2) Chest pain Current Visit: Yes Status: Acute (3) Afib Current Visit: No Status: Acute Qualifiers: Atrial fibrillation type: chronic Qualifier Code(s): (I48.2) Chronic atrial fibrillation (4) Anemia Current Visit: Yes Status: Chronic Qualifiers: Anemia type: iron deficiency Iron deficiency anemia type: unspecified iron deficiency Qualified Description: Iron deficiency anemia, unspecified iron deficiency anemia type Qualifier Code(s): (D50.9) Iron deficiency anemia, unspecified (5) Chronic obstructive lung disease Current Visit: Yes Status: Chronic (6) Alzheimer's dementia Current Visit: No Status: Acute Qualifiers: Alzheimer's disease onset: unspecified onset Dementia behavioral disturbance: without behavioral disturbance Qualifier Code(s): (G30.9) Alzheimer's disease, unspecified, (F02.80) Dementia in other diseases classified elsewhere without behavioral disturbance
[2017-01-04] MEDS ORDERED: ISOSORBIDE MONONITRATE 30 MG SR 24H TABLET PO SCH (09:00)
== END 2017-01-03 17:01 | disposition home or self-care (01) ==
LOC: ER 13:00 → MED/SURG 14:00 → UNDOADMOB 14:24 → MED/SURG 14:24
PROVIDERS: ADMIT Family Medicine; ATTEND Family Medicine
DX: I25.10 Atherosclerotic heart disease of native coronary artery without angina pectoris (principal); D64.9 Anemia, unspecified; J44.9 Chronic obstructive pulmonary disease, unspecified; G30.8 Other Alzheimer's disease; F02.80 Dementia in other diseases classified elsewhere, unspecified severity, without behavioral disturbance, psychotic disturbance, mood disturbance, and anxiety
CPT/HCPCS: 36415 ×2; 71010; 71275; 78452; 80048; 80053; 80061; 83735; 83880; 84484 ×2; 85025; 93005; 93010; 93016; 93017; 93018; 94640 ×2; 94761 ×2; 99284 ×2; J1650; J7512; J7030

== ENCOUNTER → 2017-01-16 | Outpatient (CLI) | payer OTHER | LOC: MMPC 11:11 | DX: I25.10 Atherosclerotic heart disease of native coronary artery without angina pectoris (principal); I48.91 Unspecified atrial fibrillation; D64.9 Anemia, unspecified; I10 Essential (primary) hypertension; F03.90 Unspecified dementia, unspecified severity, without behavioral disturbance, psychotic disturbance, mood disturbance, and anxiety; J44.9 Chronic obstructive pulmonary disease, unspecified | CPT/HCPCS: 99213; G0463 ==

== ENCOUNTER → 2017-03-18 | Outpatient (CLI) | payer OTHER | LOC: MMPC 11:11 | DX: J44.9 Chronic obstructive pulmonary disease, unspecified (principal); I25.10 Atherosclerotic heart disease of native coronary artery without angina pectoris; I48.91 Unspecified atrial fibrillation; F03.90 Unspecified dementia, unspecified severity, without behavioral disturbance, psychotic disturbance, mood disturbance, and anxiety; I10 Essential (primary) hypertension; D64.9 Anemia, unspecified; R51 Headache | CPT/HCPCS: 99213; G0463 ==

== ENCOUNTER 2019-07-19 09:30 | Inpatient (IN) ==
[2019-07-19] MEDS ORDERED: methylPREDNISolone 125 MG/2 ML VIAL IVP ONE (09:40)
[2019-07-19] MEDS ORDERED: cefTRIAXone Inj 1 GM in Sodium Chloride 0.9% 100 ML IV ONE (09:43)
[2019-07-19 09:52] LABS: BASOPHILS # (AUTO) 0.02 10*3/UL; BASOPHILS % (AUTO) 0.1 % (0-1); EOSINOPHILS # (AUTO) 0 10*3/UL; EOSINOPHILS % (AUTO) 0 % (0-8); Hemoglobin [HGB] 12.5 g/dL (12.0-16.0); LYMPHOCYTES # (AUTO) 0.28 10*3/uL; MEAN CORPUSCULAR HGB CONC 29.1 g/dL (33-37); MEAN CORPUSCULAR VOLUME 103.9 FL (81-99); MEAN PLATELET VOLUME 10.5 FL (7.4-12.2); MONOCYTES # (AUTO) 0.91 10*3/UL (0.3-0.8); MONOCYTES % (AUTO) 5.9 % (5-15); NEUTROPHILS # (AUTO) 14.14 10*3/UL; NEUTROPHILS % (AUTO) 91.5 % (50-80); PLATELET MORPHOLOGY COMMENT NORMAL MORPHOLOGY (NORM); RBC MORPHOLOGY COMMENT NORMAL MORPHOLOGY (NORM); RED BLOOD COUNT 4.14 10^6/uL (4.20-5.40); WBC MORPHOLOGY COMMENT NORMAL MORPHOLOGY (NORM)
[2019-07-19 09:57] LABS: BUN/CREATININE RATIO 21.11 (6-20)
[2019-07-19] MEDS ORDERED: Sodium Chloride 0.9% 500 ML PRIMARY IV ONE (10:09)
[2019-07-19] MEDS ORDERED: Calcium Gluconate Inj 1,000 MG in Sodium Chloride 0.9% 100 ML IV ONE (10:21)
[2019-07-19] MEDS ORDERED: SODIUM POLYSTYRENE SULFONATE 15 GM/60 ML PO ONE (10:22)
[2019-07-19] MEDS ORDERED: INSULIN REGULAR, HUMAN 100 UNIT/1 ML - 3 ML SUBCUT ONE (10:24)
[2019-07-19] MEDS ORDERED: D10W 250 ML PRIMARY IV ONE (10:25)
[2019-07-19] MEDS ORDERED: DEXTROSE 50%-WATER SYRINGE 50 ML SYRINGE IVP ONE (10:37)
[2019-07-19] MEDS ORDERED: LIDOCAINE W/ SODIUM BICARB 0.5 ML SYR SUBD PRN (14:30)
[2019-07-19] MEDS ORDERED: Lactated Ringers 1,000 ML PRIMARY IV ONE (14:51)
[2019-07-19] MEDS: Lactated Ringers 1,000 ML PRIMARY IV SCH (15:04)
[2019-07-19] MEDS ORDERED: LEVALBUTEROL HCL 1.25 MG/3 ML NEB PRN (16:59)
[2019-07-19 19:17] LABS: BLOOD UREA NITROGEN 38 mg/dL (7-22); BUN/CREATININE RATIO 27.14 (6-20)
[2019-07-19] MEDS: Metoprolol TARTRATE Tab 25 MG TAB PO SCH (20:54)
[2019-07-19] MEDS: methylPREDNISolone 40 MG/1 ML VIAL IVP SCH (20:54)
[2019-07-19 21:19] LABS: VENOUS PH 7.29 (7.32-7.42)
[2019-07-19 21:20] LABS: VENOUS PCO2 67.3 mmHg (45-55)
[2019-07-19] MEDS ORDERED: traZODone Tab 50 MG TAB PO ONE (22:29)
[2019-07-20 07:07] LABS: RED BLOOD COUNT 3.97 10^6/uL (4.20-5.40)
[2019-07-20] MEDS: Lactated Ringers 1,000 ML PRIMARY IV SCH (07:07)
[2019-07-20] MEDS: PANTOPRAZOLE 40 MG TABLET PO SCH (07:07)
[2019-07-20 07:08] LABS: Hematocrit [HCT] 39.4 % (37.0-47.0); Hemoglobin [HGB] 11.9 g/dL (12.0-16.0); MEAN CORPUSCULAR HGB CONC 30.2 g/dL (33-37); MEAN CORPUSCULAR VOLUME 99.2 FL (81-99); MEAN PLATELET VOLUME 10.4 FL (7.4-12.2)
[2019-07-20 07:09] LABS: BASOPHILS % (AUTO) 0.1 % (0-1); EOSINOPHILS % (AUTO) 0 % (0-8); MONOCYTES % (AUTO) 5.3 % (5-15); NEUTROPHILS # (AUTO) 9.87 10*3/UL; NEUTROPHILS % (AUTO) 90.6 % (50-80)
[2019-07-20 07:10] LABS: BASOPHILS # (AUTO) 0.01 10*3/UL; EOSINOPHILS # (AUTO) 0 10*3/UL; LYMPHOCYTES # (AUTO) 0.36 10*3/uL; MONOCYTES # (AUTO) 0.58 10*3/UL (0.3-0.8); PLATELET MORPHOLOGY COMMENT NORMAL MORPHOLOGY (NORM); RBC MORPHOLOGY COMMENT NORMAL MORPHOLOGY (NORM); WBC MORPHOLOGY COMMENT NORMAL MORPHOLOGY (NORM)
[2019-07-20 07:31] LABS: VENOUS PH 7.37 (7.32-7.42)
[2019-07-20] MEDS: FERROUS SULFATE 325 MG TABLET PO SCH (09:25)
[2019-07-20] MEDS: DONEPEZIL 5 MG TABLET PO SCH (09:25)
[2019-07-20] MEDS: Metoprolol TARTRATE Tab 25 MG TAB PO SCH ×2 (09:25→22:15)
[2019-07-20] MEDS: CHOLECALCIFEROL 1000 IU TABLET PO SCH (09:25)
[2019-07-20] MEDS: ISOSORBIDE MONONITRATE 30 MG SR 24H TABLET PO SCH (09:25)
[2019-07-20] MEDS: ASCORBIC ACID Chewable 500 MG TABLET PO SCH (09:25)
[2019-07-20] MEDS: ASPIRIN EC 81 MG TABLET PO SCH (09:26)
[2019-07-20] MEDS: cefTRIAXone Inj 2 GM in Sodium Chloride 0.9% 100 ML IV SCH (09:26)
[2019-07-20] MEDS: methylPREDNISolone 40 MG/1 ML VIAL IVP SCH ×2 (09:33→22:14)
[2019-07-20] MEDS ORDERED: Influenza 19-20 Vaccine (6mo+) 60 MCG/0.5 ML SYRINGE IM ONE (10:31)
[2019-07-21 05:23] LABS: BUN/CREATININE RATIO 30.83 (6-20)
[2019-07-21] MEDS: PANTOPRAZOLE 40 MG TABLET PO SCH (07:35)
[2019-07-21] MEDS ORDERED: LEVALBUTEROL HCL 1.25 MG/3 ML NEB ONE (09:15)
[2019-07-21] MEDS: Metoprolol TARTRATE Tab 25 MG TAB PO SCH ×2 (09:48→20:04)
[2019-07-21] MEDS: ASPIRIN EC 81 MG TABLET PO SCH (09:49)
[2019-07-21] MEDS: ISOSORBIDE MONONITRATE 30 MG SR 24H TABLET PO SCH (09:49)
[2019-07-21] MEDS: CHOLECALCIFEROL 1000 IU TABLET PO SCH (09:50)
[2019-07-21] MEDS: DONEPEZIL 5 MG TABLET PO SCH (09:50)
[2019-07-21] MEDS: ASCORBIC ACID Chewable 500 MG TABLET PO SCH (09:51)
[2019-07-21] MEDS: ENOXAPARIN SODIUM 30 MG/0.3 ML SYRINGE SUBCUT SCH (09:51)
[2019-07-21] MEDS: FERROUS SULFATE 325 MG TABLET PO SCH (09:51)
[2019-07-21] MEDS: methylPREDNISolone 125 MG/2 ML VIAL IVP SCH ×2 (09:52→16:01)
[2019-07-21] MEDS: cefTRIAXone Inj 2 GM in Sodium Chloride 0.9% 100 ML IV SCH (09:53)
[2019-07-21] MEDS: LEVALBUTEROL HCL 1.25 MG/3 ML NEB SCH ×3 (09:55→19:15)
[2019-07-22] MEDS: LEVALBUTEROL HCL 1.25 MG/3 ML NEB SCH ×4 (01:18→19:52)
[2019-07-22] MEDS: methylPREDNISolone 125 MG/2 ML VIAL IVP SCH ×3 (02:05→17:09)
[2019-07-22 05:25] LABS: Hematocrit [HCT] 39.9 % (37.0-47.0); Hemoglobin [HGB] 11.9 g/dL (12.0-16.0); RED BLOOD COUNT 3.99 10^6/uL (4.20-5.40)
[2019-07-22 05:26] LABS: BASOPHILS # (AUTO) 0.01 10*3/UL; BASOPHILS % (AUTO) 0.1 % (0-1); EOSINOPHILS # (AUTO) 0 10*3/UL; EOSINOPHILS % (AUTO) 0 % (0-8); LYMPHOCYTES # (AUTO) 0.36 10*3/uL; MEAN CORPUSCULAR HGB CONC 29.8 g/dL (33-37); MEAN CORPUSCULAR VOLUME 100 FL (81-99); MEAN PLATELET VOLUME 10.1 FL (7.4-12.2); MONOCYTES # (AUTO) 0.31 10*3/UL (0.3-0.8); MONOCYTES % (AUTO) 3.7 % (5-15); NEUTROPHILS # (AUTO) 7.76 10*3/UL; NEUTROPHILS % (AUTO) 91.7 % (50-80); PLATELET MORPHOLOGY COMMENT NORMAL MORPHOLOGY (NORM); RBC MORPHOLOGY COMMENT NORMAL MORPHOLOGY (NORM); WBC MORPHOLOGY COMMENT NORMAL MORPHOLOGY (NORM)
[2019-07-22 05:37] LABS: BUN/CREATININE RATIO 32.5 (6-20)
[2019-07-22] MEDS: PANTOPRAZOLE 40 MG TABLET PO SCH (06:33)
[2019-07-22] MEDS: cefTRIAXone Inj 2 GM in Sodium Chloride 0.9% 100 ML IV SCH (08:32)
[2019-07-22] MEDS: ENOXAPARIN SODIUM 30 MG/0.3 ML SYRINGE SUBCUT SCH (08:32)
[2019-07-22] MEDS: CHOLECALCIFEROL 1000 IU TABLET PO SCH (08:33)
[2019-07-22] MEDS: ISOSORBIDE MONONITRATE 30 MG SR 24H TABLET PO SCH (08:33)
[2019-07-22] MEDS: FERROUS SULFATE 325 MG TABLET PO SCH (08:33)
[2019-07-22] MEDS: DONEPEZIL 5 MG TABLET PO SCH (08:33)
[2019-07-22] MEDS: ASCORBIC ACID Chewable 500 MG TABLET PO SCH (08:33)
[2019-07-22] MEDS: Metoprolol TARTRATE Tab 25 MG TAB PO SCH ×2 (08:33→20:25)
[2019-07-22] MEDS: ASPIRIN EC 81 MG TABLET PO SCH (08:34)
[2019-07-23] MEDS: methylPREDNISolone 125 MG/2 ML VIAL IVP SCH ×3 (00:53→17:07)
[2019-07-23] MEDS: LEVALBUTEROL HCL 1.25 MG/3 ML NEB SCH ×4 (01:14→19:58)
[2019-07-23] MEDS: PANTOPRAZOLE 40 MG TABLET PO SCH (06:53)
[2019-07-23] MEDS: ASCORBIC ACID Chewable 500 MG TABLET PO SCH (09:02)
[2019-07-23] MEDS: ASPIRIN EC 81 MG TABLET PO SCH (09:02)
[2019-07-23] MEDS: FERROUS SULFATE 325 MG TABLET PO SCH (09:02)
[2019-07-23] MEDS: ISOSORBIDE MONONITRATE 30 MG SR 24H TABLET PO SCH (09:02)
[2019-07-23] MEDS: DONEPEZIL 5 MG TABLET PO SCH (09:02)
[2019-07-23] MEDS: ENOXAPARIN SODIUM 30 MG/0.3 ML SYRINGE SUBCUT SCH (09:03)
[2019-07-23] MEDS: cefTRIAXone Inj 2 GM in Sodium Chloride 0.9% 100 ML IV SCH (09:03)
[2019-07-23] MEDS: Metoprolol TARTRATE Tab 25 MG TAB PO SCH ×2 (09:03→20:22)
[2019-07-23] MEDS: CHOLECALCIFEROL 1000 IU TABLET PO SCH (09:04)
[2019-07-24] MEDS: methylPREDNISolone 125 MG/2 ML VIAL IVP SCH ×2 (00:46→08:25)
[2019-07-24] MEDS: LEVALBUTEROL HCL 1.25 MG/3 ML NEB SCH ×4 (01:03→19:31)
[2019-07-24] MEDS: ENOXAPARIN SODIUM 30 MG/0.3 ML SYRINGE SUBCUT SCH (08:25)
[2019-07-24] MEDS: ASPIRIN EC 81 MG TABLET PO SCH (08:25)
[2019-07-24] MEDS: PANTOPRAZOLE 40 MG TABLET PO SCH (08:26)
[2019-07-24] MEDS: ISOSORBIDE MONONITRATE 30 MG SR 24H TABLET PO SCH (08:26)
[2019-07-24] MEDS: FERROUS SULFATE 325 MG TABLET PO SCH (08:26)
[2019-07-24] MEDS: CHOLECALCIFEROL 1000 IU TABLET PO SCH (08:26)
[2019-07-24] MEDS: Metoprolol TARTRATE Tab 25 MG TAB PO SCH ×2 (08:27→20:40)
[2019-07-24] MEDS: ASCORBIC ACID Chewable 500 MG TABLET PO SCH (08:27)
[2019-07-24] MEDS: DONEPEZIL 5 MG TABLET PO SCH (08:28)
[2019-07-24 10:30] LABS: VENOUS PH 7.36 (7.32-7.42)
[2019-07-24] MEDS: cefTRIAXone Inj 2 GM in Sodium Chloride 0.9% 100 ML IV SCH (10:34)
[2019-07-24] MEDS: CEFDINIR 300 MG CAPSULE PO SCH (20:40)
[2019-07-25] MEDS: LEVALBUTEROL HCL 1.25 MG/3 ML NEB SCH ×4 (01:07→19:28)
[2019-07-25] MEDS: FERROUS SULFATE 325 MG TABLET PO SCH (07:59)
[2019-07-25] MEDS: CEFDINIR 300 MG CAPSULE PO SCH ×2 (07:59→20:35)
[2019-07-25] MEDS: Metoprolol TARTRATE Tab 25 MG TAB PO SCH ×2 (08:00→20:35)
[2019-07-25] MEDS: ASCORBIC ACID Chewable 500 MG TABLET PO SCH (08:00)
[2019-07-25] MEDS: CHOLECALCIFEROL 1000 IU TABLET PO SCH (08:01)
[2019-07-25] MEDS: DONEPEZIL 5 MG TABLET PO SCH (08:01)
[2019-07-25] MEDS: ASPIRIN EC 81 MG TABLET PO SCH (08:01)
[2019-07-25] MEDS: PANTOPRAZOLE 40 MG TABLET PO SCH (08:01)
[2019-07-25] MEDS: ISOSORBIDE MONONITRATE 30 MG SR 24H TABLET PO SCH (08:01)
[2019-07-25] MEDS: ENOXAPARIN SODIUM 30 MG/0.3 ML SYRINGE SUBCUT SCH (08:02)
[2019-07-26] MEDS: LEVALBUTEROL HCL 1.25 MG/3 ML NEB SCH ×4 (01:04→19:43)
[2019-07-26] MEDS: PANTOPRAZOLE 40 MG TABLET PO SCH (06:34)
[2019-07-26] MEDS: ASPIRIN EC 81 MG TABLET PO SCH (08:37)
[2019-07-26] MEDS: DONEPEZIL 5 MG TABLET PO SCH (08:37)
[2019-07-26] MEDS: ISOSORBIDE MONONITRATE 30 MG SR 24H TABLET PO SCH (08:37)
[2019-07-26] MEDS: ENOXAPARIN SODIUM 30 MG/0.3 ML SYRINGE SUBCUT SCH (08:37)
[2019-07-26] MEDS: ASCORBIC ACID Chewable 500 MG TABLET PO SCH (08:37)
[2019-07-26] MEDS: Metoprolol TARTRATE Tab 25 MG TAB PO SCH ×2 (08:37→20:40)
[2019-07-26] MEDS: CHOLECALCIFEROL 1000 IU TABLET PO SCH (08:37)
[2019-07-26] MEDS: CEFDINIR 300 MG CAPSULE PO SCH ×2 (08:37→20:39)
[2019-07-27] MEDS: LEVALBUTEROL HCL 1.25 MG/3 ML NEB SCH ×3 (01:03→12:50)
[2019-07-27] MEDS: PANTOPRAZOLE 40 MG TABLET PO SCH (06:47)
[2019-07-27] MEDS: ENOXAPARIN SODIUM 30 MG/0.3 ML SYRINGE SUBCUT SCH (09:12)
[2019-07-27] MEDS: ASCORBIC ACID Chewable 500 MG TABLET PO SCH (09:13)
[2019-07-27] MEDS: DONEPEZIL 5 MG TABLET PO SCH (09:13)
[2019-07-27] MEDS: CEFDINIR 300 MG CAPSULE PO SCH (09:13)
[2019-07-27] MEDS: ISOSORBIDE MONONITRATE 30 MG SR 24H TABLET PO SCH (09:13)
[2019-07-27] MEDS: Metoprolol TARTRATE Tab 25 MG TAB PO SCH (09:14)
[2019-07-27] MEDS: ASPIRIN EC 81 MG TABLET PO SCH (09:14)
[2019-07-27] MEDS: CHOLECALCIFEROL 1000 IU TABLET PO SCH (09:14)
[2019-07-27 11:05] VITALS: BP 117/62; TEMP 98.5; O2SAT 96
[2019-07-27 12:51] VITALS: RESP 20
== END 2019-07-27 13:35 | disposition home or self-care (01) | DRG 194 ==
LOC: ER 09:30 → MED/SURG 12:48
PROVIDERS: ADMIT Internal Medicine; ATTEND Internal Medicine

== ENCOUNTER 2019-09-07 13:51 | Inpatient (IN) ==
[2019-09-07] MEDS ORDERED: LIDOCAINE W/ SODIUM BICARB 0.5 ML SYR SUBD PRN (13:54)
[2019-09-07] MEDS ORDERED: ACETAMINOPHEN 325 MG TABLET PO PRN (13:54)
[2019-09-07] MEDS ORDERED: DOCUSATE 100 MG CAPSULE PO PRN (13:54)
[2019-09-07] MEDS ORDERED: ONDANSETRON 4 MG/2 ML VIAL IVP PRN (13:54)
[2019-09-07] MEDS ORDERED: CALCIUM CARBONATE 500 MG (TUMS) CHEWABLE TABLET PO PRN (13:54)
[2019-09-07 14:05] VITALS: BP 139/78; TEMP 97.4; O2SAT 99
[2019-09-07] MEDS ORDERED: MORPHINE SULFATE 20 MG/1 ML ORAL SOLN PO PRN (15:14)
[2019-09-07] MEDS ORDERED: LIDOCAINE HCL 2 % 10 ML JELLY URO-JECT TOPICAL PRN (15:14)
[2019-09-07] MEDS ORDERED: LORazepam 1 MG TABLET PO PRN (15:30)
[2019-09-07] MEDS ORDERED: Morphine Drip 250mg/250ml 250 MG/250 ML PLAST..BAG IV SCH ×2 (15:30→16:30)
[2019-09-07] MEDS ORDERED: DIAZEPAM 10 MG/2 ML (5 MG/1 ML) CARPUJECT IVP PRN ×2 (15:31→16:32)
[2019-09-07] MEDS ORDERED: Keys-Morphine Palliative Care ONE (16:03)
[2019-09-07] MEDS ORDERED: Sodium Chloride 0.9% 1,000 ML PRIMARY IV SCH (16:30)
[2019-09-07] MEDS ORDERED: FUROSEMIDE 10 MG/1 ML - 10 ML IVP ONE (16:32)
[2019-09-07] MEDS: Hypromellose/Glycerin/PEG 400 Ophth Soln 15 ML DROPS EACH EYE SCH ×3 (19:11→22:49)
[2019-09-07] MEDS: Sodium Chloride 0.9% 1,000 ML PRIMARY IV SCH (22:56)
[2019-09-08] MEDS: Hypromellose/Glycerin/PEG 400 Ophth Soln 15 ML DROPS EACH EYE SCH ×6 (02:45→23:38)
[2019-09-08] MEDS ORDERED: FUROSEMIDE 10 MG/1 ML - 10 ML IVP ONE (14:42)
[2019-09-09] MEDS: Hypromellose/Glycerin/PEG 400 Ophth Soln 15 ML DROPS EACH EYE SCH ×3 (03:16→07:38)
[2019-09-09] MEDS: Sodium Chloride 0.9% 1,000 ML PRIMARY IV SCH ×2 (06:55→08:21)
[2019-09-09 09:53] VITALS: RESP 16
== END 2019-09-09 13:47 | disposition expired | DRG 65 ==
LOC: MED/SURG 13:59
PROVIDERS: ADMIT Family Medicine; ATTEND Family Medicine